=== PATIENT | male | born 1990 | race Native Hawaiian/Other Pacific Islander ===

== ENCOUNTER 2017-12-04 07:19 | Emergency (ER) | payer OTHER ==
[2017-12-04 07:30] VITALS: O2SAT 98
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
[2017-12-04 08:12] VITALS: BP 120/70; PULSE 78; RESP 20; TEMP 98
== END 2017-12-04 08:20 | disposition home or self-care (01) ==
LOC: H.ER 07:19
DX: S39.94XA Unspecified injury of external genitals, initial encounter (principal); X58.XXXA Exposure to other specified factors, initial encounter